=== PATIENT | female | born 1970 | race Caucasian/White ===

== ENCOUNTER 2022-08-01 08:35 | Outpatient (CLI) | payer OTHER, SELFPAY ==
--- NOTE | 2022-08-01 10:04 | W.ANESCHARGE ---
Anesthesia Charges Start Date/Time Anesthesia Start Date: 08/01/22 Anesthesia Start Time: 09:31 Stop Date/Time Anesthesia Stop Date: 08/01/22 Anesthesia Stop Time: 10:00 Summary Emergency: No
== END 2022-08-01 08:36 | disposition home or self-care (01) ==
LOC: OP CLINIC 08:40
PROVIDERS: PCP Physician Assistant Medical; Visit Provider Internal Medicine Gastroenterology
DX: Z86.010 Personal history of colon polyps (principal); K63.89 Other specified diseases of intestine
CPT/HCPCS: 00811; 45380; 88305; J2704